=== PATIENT | female | born 1945 | race Caucasian/White ===

== ENCOUNTER → 2018-03-01 | Outpatient (CLI) | payer MEDICARE, OTHER ==
[~2018-03-01] MED LIST: ASTELIN30 ML INH; CALCIUM PO; CELEXA 20 MG TA20 MG PO; CLARITIN D PO; CRESTOR20 MG PO; ELAVIL PO; FISH OIL PO; FLONASE 0.05%50 MCG INH; IMITREX PO; LASIX 20 MG TAB20 MG PO; NEXIUM 40 MG CA40 M1 PO; NORCO 7.5-3251 EACH PO; REQUIP 1 MG TABL1 M1 PO; TOPROL XL100 MG PO; [UNRECOGNIZED DRUG - OTHER] PO
== END ==
LOC: M.RAD 10:00
DX: C50.911 Malignant neoplasm of unspecified site of right female breast (principal); M85.89 Other specified disorders of bone density and structure, multiple sites; R92.1 Mammographic calcification found on diagnostic imaging of breast; Z78.0 Asymptomatic menopausal state; Z17.0 Estrogen receptor positive status [ER+]

== ENCOUNTER → 2018-03-05 | Outpatient (CLI) | payer MEDICARE, OTHER | LOC: M.ULTRA 09:55 | DX: N63.23 Unspecified lump in the left breast, lower outer quadrant (principal); C50.912 Malignant neoplasm of unspecified site of left female breast ==

== ENCOUNTER → 2018-09-17 | Outpatient (CLI) | payer MEDICARE, OTHER | LOC: M.RAD 10:25 | DX: Z12.31 Encounter for screening mammogram for malignant neoplasm of breast (principal) ==

== ENCOUNTER → 2019-09-26 | Outpatient (CLI) | payer MEDICARE, OTHER | LOC: M.RAD 09-20 13:00 | PROVIDERS: ATTEND Internal Medicine Hematology & Oncology | DX: Z12.31 Encounter for screening mammogram for malignant neoplasm of breast (principal); N64.89 Other specified disorders of breast ==

== ENCOUNTER → 2020-09-25 | Outpatient (CLI) | payer MEDICARE, OTHER | LOC: M.RAD 13:00 | PROVIDERS: ATTEND Internal Medicine Hematology & Oncology | DX: Z12.31 Encounter for screening mammogram for malignant neoplasm of breast (principal); N64.89 Other specified disorders of breast ==